=== PATIENT | female | born 1950 | race Two or more races ===

== ENCOUNTER 2024-05-13 10:27 | Emergency (ER) | payer MEDICAID, SELFPAY ==
[2024-05-13 10:36] VITALS: BP 155/93; PULSE 91; PULSE 94; RESP 19; TEMP 37.4; O2SAT 96; O2SAT 97
--- NOTE | 2024-05-13 10:50 | PC.NURSE ---
BIBA FROM HOME FOR COUGH THAT BEGAN ON SATURDAY. NOW CAUSING CP FROM COUGHING TOO MUCH.
--- NOTE | 2024-05-13 11:00 | PD.EDURI ---
Upper Respiratory Inf. RME/HPI General Chief Complaint: Flu Like Symptoms Stated Complaint: COUGH AND CHEST PAIN Arrival date/time: 05/13/24 10:27 RME / HPI RME / HPI Narrative: 74 year old female with history of hypertension, asthma presents to the ED BIBA from home for evaluation of global weakness, body aches, chest pain, and cough. Patient states her symptoms began 3 days ago and this morning felt she was unable to get out of bed due to weakness, prompting ED visit. Daughter at bedside also reports patient has had nausea and decreased po intake. No fevers, shortness of breath, abdominal pain, vomiting, diarrhea, constipation, or urinary symptoms. Related Data Home Medications ?Medication ?Instructions ?Recorded ?Confirmed albuterol sulfate 90 mcg/actuation 2 puff inhalation Q4H PRN sob 08/22/21 09/22/21 aerosol inhaler lisinopril 10 mg tablet 10 mg PO QDAY 08/22/21 09/22/21 omeprazole 40 mg capsule,delayed 40 mg PO QDAY 08/22/21 09/22/21 release cholecalciferol (vitamin D3) 125 125 mcg PO QDAY 09/22/21 09/22/21 mcg (5,000 unit) tablet (Vitamin D3) ciprofloxacin HCl 500 mg tablet 500 mg PO BID 09/22/21 09/22/21 furosemide 20 mg tablet 20 mg PO QDAY 09/22/21 09/22/21 loratadine 10 mg tablet 10 mg PO QDAY 09/22/21 09/22/21 trazodone 50 mg tablet 50 mg PO QDAY 09/22/21 09/22/21 Previous Rx's ?Medication ?Instructions ?Recorded meloxicam 7.5 mg tablet 7.5 mg PO QDAY #14 tabs 01/24/22 pantoprazole 20 mg tablet,delayed 20 mg PO QDAY #20 tabs 01/24/22 release (Protonix) Allergies Allergy/AdvReac Type Severity Reaction Status Date / Time egg Allergy Mild Hives Verified 06/25/23 18:53 Influenza Virus Vaccines Allergy Mild Rash Verified 06/25/23 18:53 Review of Systems Review of Systems Narrative Review of Systems: Constitutional: SEE HPI +global weakness, body aches DENIES; Fevers Eyes: DENIES; Loss of vision Head/Ear/Nose: DENIES; Loss of hearing Throat: DENIES; Dysphagia Cardiovascular: SEE HPI +chest pain. DENIES; dyspnea or syncope Respiratory: SEE HPI +cough. DENIES; Shortness of breath Gastrointestinal: SEE HPI +nausea. DENIES; Rectal bleeding or melena. Genitourinary: DENIES; Dysuria (painful or difficult urination) Musculoskeletal: DENIES; Arthralgia (pain in a joint),; Skin: DENIES; Rash Neurological: SEE HPI +global weakness. DENIES; Loss of function or movement Psychiatric: DENIES; recent major life stressor, emotional problem, illicit drug use or abuse Endocrinology: DENIES; Weight change Hematologic/Lymphatic: DENIES; Abnormal bruising Allergic/Immunologic: DENIES; Urticaria (hives) Past Medical History Past Medical History CARDIAC: Positive Cardiac Disorders, Edema and Hypertension RESPIRATORY: Positive Asthma and Pneumonia GASTROINTESTINAL: Positive Gastrointestinal Disorders, Gall Bladder Disease and Gastroesophageal Reflux Disease GENITOURINARY: Positive Kidney Stones REPRODUCTIVE: Positive Previous Pregnancies MUSCULOSKELETAL: Positive Musculoskeletal Disorders, Arthritis and Osteoporosis ENDOCRINE: Positive Endocrine Disorders HEMATOLOGIC: Positive Anemia PSYCHO/SOCIAL: Positive Depression and Anxiety OTHER HISTORY: Positive Shingles, Falls, Chicken Pox, Measles and Mumps Family History FAMILY HISTORY: Positive Family Cardiac Disorders, Family Surgery and Family Anesthesia Reaction Surgical History SURGICAL: Negative Pacemaker Social History SMOKING STATUS: Never smoker SUBSTANCE USE: does not use ED Exam Narrative Physical exam: Physical Exam: General: The vital signs were reviewed. The patient is non-toxic, in no apparent distress and appears healthy with a patent airway, no respiratory distress and has no apparent circulatory problems. Head & Scalp: Normocephalic, atraumatic. Face: Appears normal and is without lesions, deformity. Ears: Left external pinna appears normal. Right external pinna appears normal. Eyes: The sclera is anicteric. No obvious photophobia. The Left and Right Orbit/Lid/Conjunctiva appears normal without swelling, discoloration or injection. Nose: The nose is without deformity, discharge or tenderness; Throat: Appears normal. The mucous membranes are pink and moist without exudates, redness or mass seen. The tongue appears normal. Neck: The neck is supple and no apparent mass or adenopathy. Chest: The chest wall is normal in size and symmetry and has no chest wall tenderness or crepitus. The patient displays normal ventilator effort without retractions, accessory muscle use and has adequate air movement bilaterally with no wheezes and no rales. Cardiovascular: Regular rate and rhythm; No murmurs, rubs, or gallops; Gastrointestinal: The abdomen appears normal. No obvious hernias or mass. The abdomen is soft and benign, non-distended, with no pain, no guarding and no rebound tenderness. Bowel sounds are present and normal sounding. No CVA tenderness. Genitourinary: Back/Spine: No inspection nontender Extremities/Musculoskeletal/lymphatic: The bilateral upper and lower extremities are warm. There is no evidence of arterial insufficiency. There is no evidence of venous insufficiency/edema. The patient spontaneously moves bilateral upper and lower extremities with no pain and no limitation of movement. There is no apparent, injury or trauma. Skin: The skin is warm, dry and intact. No rashes. No petechia. No purpura. No abnormal bruising. The color is appropriate with no cyanosis. Mental status/Psychiatric: Mental status is appropriate for age. The patient has no apparent delusions, visual hallucinations, no apparent audible hallucinations. The patient has no apparent suicidal thoughts/ideation and no apparent homicidal thoughts/ideation. Neurological: The patient is awake, alert, interactive, cordial, cooperative and is oriented to name and situation. The patient follows commands and answers historical question with no impairment. There is no visual disturbance apparent. The pupils are equal and reactive bilaterally with normal eye movements and no diplopia The bilateral upper and lower extremities have normal strength, normal range of motion and normal functioning. The gait, station and balance not tested due to acuity Course Quality Measures none Orders Category Date Time Status Bedside Blood Glucose NOW Care 05/13/24 15:00 Active EKG (ED ONLY) *Do not use* NOW Care 05/13/24 15:00 Completed Insert IV NOW Care 05/13/24 15:35 Active EKG (ED Only) Stat Exams 05/13/24 15:00 Draft Alcohol, Blood Medical Stat Lab 05/13/24 15:30 Completed Ammonia Stat Lab 05/13/24 15:30 Completed B-Type Natriuretic Peptide Stat Lab 05/13/24 15:30 Completed Blood Culture (Lab) Stat Lab 05/13/24 15:35 Received CBC Stat Lab 05/13/24 15:30 Completed Comprehensive Metabolic Panel Stat Lab 05/13/24 15:30 Completed Lactate (Lactic Acid) Stat Lab 05/13/24 15:30 Completed Procalcitonin Stat Lab 05/13/24 15:30 Completed Troponin I Stat Lab 05/13/24 15:30 Completed Urinalysis Stat Lab 05/13/24 16:23 Completed Urinalysis, C/S if Indicated Stat Lab 05/13/24 16:23 Completed Venous Blood Gas Stat Lab 05/13/24 15:30 Completed Acetaminophen Tab [Tylenol ES Tab] Med 05/13/24 15:34 Discontinued 1,000 mg PO X1 ONE Sodium Chloride 0.9% 1000 ml [Ns] 1,000 ml Med 05/13/24 15:00 Discontinued IV 1,000 mls/hr Sodium Chloride 0.9% 1000 ml [Ns] 2,000 ml Med 05/13/24 15:00 Active IV 150 mls/hr Vital Signs Vital signs: Vital Signs Temperature 99.4 F 05/13/24 10:36 Pulse Rate 94 05/13/24 10:36 Respiratory Rate 19 05/13/24 10:36 Blood Pressure 155/93 H 05/13/24 10:36 Pulse Oximetry (%) 97 05/13/24 10:36 Oxygen Delivery Method Room Air 05/13/24 10:36 Upper Respiratory Infection MDM Narrative MDM Narrative:: Patient is 74-year-old feels weak and tired body aches feverish chest discomfort states there is another family or who is got similar symptoms in the home. Patient had a medical workup which reveals the following venous blood gas 7.37 pCO2 of 52 electrolytes are within normal is BUN/creatinine are 13 and 0.8. Lactic acid is 1.9. Ammonia level was negative troponin was negative BNP was negative with 7 red cells and 6 squames and 1 white cell most likely contaminant alpha level is negative Patient got some fluids she got spiked the Tylenol but overall feels better. She was advised in detail knows return to getting worse in any way take Tylenol fluids and advance as tolerated. She we know there is a delay in the CBC result coming back but it came back negative. At 1810 hrs. Patient data External records reviewed:: [facility] previous records (I reviewed ED visit on 06/25/2023) and EMS form Clinical information provided by:: patient and EMS Social determinants that could affect healthcare access:: none Patient has the following chronic illnesses:: hypertension, asthma How is presenting disease/condition affected by chronic disease/condition?: exacerbated by Evaluation data The following diagnostics were reviewed and interpreted by me:: lab results and EKG tracing(s) (Sinus rhythm, rate 85, no STEMI ) Lab and/or radiology exams considered but not ordered:: None Interpretation Summary: As noted above Medications / Prescriptions Medications or Prescriptions considered but not ordered:: None Medication administrations:: Medication Administration History Sodium Chloride (Ns) 2,000 mls @ 150 mls/hr IV .[id number] ONE Stop: 05/14/24 04:19 Last Admin: 05/13/24 17:34 Dose: 150 mls/hr Documented By: TM Discontinued Medications Acetaminophen (Acetaminophen 500 Mg Tablet) 1,000 mg PO X1 ONE Stop: 05/13/24 15:35 Last Admin: 05/13/24 15:37 Dose: 1,000 mg Documented By: DB Sodium Chloride (Ns) 1,000 mls @ 1,000 mls/hr IV .Q1H ONE Stop: 05/13/24 15:59 Last Infusion: 05/13/24 16:47 Dose: Infused Documented By: Admin: 05/13/24 15:38 Dose: 1,000 mls/hr Documented By: ANTOINETTE See above Consultations Consultation(s) initiated? (list below): No Diagnosis Upper Respiratory Differential Diagnosis: upper respiratory infection, sinusitis, viral infection, bronchitis, influenza and other (RSV) Most likely diagnosis given after review of the tests above:: Weakness Influenza B Admission Indicated Admission indicated?: not indicated Admission Request Was there a request for admission?: No Disposition Plan Disposition Plan: Discharge Discharge Attestation Discharge Attestation: The patient and all family members were given an opportunity to ask questions and understood the discharge instructions. Discharge instructions specifically effects, indications for sooner follow up or return to the emergency department, and the expected course of current diagnosis. Patient condition: Stable Discharge Plan Plan Patient Disposition: HOME (Self Care) Prescriptions/Referrals Prescriptions/Med Rec: No Action trazodone 50 mg Tablet 50 mg PO QDAY ciprofloxacin HCl 500 mg Tablet 500 mg PO BID furosemide 20 mg Tablet 20 mg PO QDAY loratadine 10 mg Tablet 10 mg PO QDAY cholecalciferol (vitamin D3) [Vitamin D3] 125 mcg (5,000 unit) Tablet 125 mcg PO QDAY omeprazole 40 mg capsule,delayed release(DR/EC) 40 mg PO QDAY Patient Comments: TOME LONNIE C PSULA TODOS LOS D lisinopril 10 mg tablet 10 mg PO QDAY Patient Comments: TOME LONNIE TABLETA TODOS LOS D albuterol sulfate 90 mcg/actuation HFA aerosol inhaler 2 puff INHALATION Q4H PRN (Reason: sob) Patient Comments: INHALE DANDO DOS SOPLIDOS INTO THE LUNGS CADA CUATRO HORAS CUANDO SEA NECESARIO FOR 30 DAYS pantoprazole [Protonix] 20 mg tablet,delayed release (DR/EC) 20 mg PO QDAY Qty: 20 0RF meloxicam 7.5 mg tablet 7.5 mg PO QDAY Qty: 14 0RF Referrals: Michael Kim MD [Primary Care Provider] - In 1 week Problem List Clinical Impression: Weakness, Influenza B, Influenza Patient/Caregiver Discharge Instructions Education Materials: ED Influenza (Adult) Additional Instructions: Drink plenty of fluids advance your diet as tolerated. Take Tylenol for aches and pains and fever. Return if getting worse or shortness of breath. Print Language: Sammarinese Stand Alone Forms: Alexia Award Info., Patient Portal Info Letter
[2024-05-13 12:47] VITALS: BP 173/126; PULSE 77; RESP 21; TEMP 37; O2SAT 96
--- NOTE | 2024-05-13 15:00 | EKG_ITS ---
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
[2024-05-13] MEDS: ACETAMINOPHEN 500 MG TABLET 1000 MG PO (15:37)
[2024-05-13] MEDS: SODIUM CHLORIDE 0.9% 1000 ML 1,000 ML IV (15:38)
[2024-05-13 15:46] LABS: Base Excess, Venous 4 (-3-3); O2 Saturation, Venous 46 % (96-97); PCO2, Venous 52 mmHg (36-56); PO2, Venous 27 mmHg (15-58); pH, Venous 7.37 (7.33-7.66)
[2024-05-13 15:47] LABS: Lactate (Lactic Acid) 1.9 mMol/L (0.4-2.0)
[2024-05-13 16:05] LABS: B-Type Natriuretic Peptide 40 pg/mL (0-100)
[2024-05-13 16:12] LABS: Ammonia < 10 uMol/L (11-32)
[2024-05-13 16:13] LABS: Alanine Aminotransferase 28 U/L (10-49); Albumin, Serum 4.1 gm/dL (3.4-4.8); Albumin/Globulin Ratio 1.8 (1.2-2.2); Alcohol, Blood Medical < 10.0 mg/dL (0-10.0); Anion Gap 8 (7-16); Aspartate Amino Transferase 22 U/L (0-34); BUN/Creatinine Ratio 16 Ratio (12-20); Bilirubin,Total 1.1 mg/dL (0.3-1.2); Blood Urea Nitrogen 13 mg/dL (9-23); Calcium 9.2 mg/dL (8.3-10.6); Calcium (Corrected) 9.2 mg/dL (8.5-10.1); Chloride 103 mMol/L (98-107); Creatinine (Component) 0.8 mg/dL (0.6-1.3); Globulin 2.3 gm/dL (2.3-3.5); Glucose 85 mg/dL (74-106); Osmolality,Calculated 278 (275-295); Potassium 3.8 mMol/L (3.4-5.1); Sodium 140 mMol/L (136-145); Total Protein 6.4 gm/dL (5.7-8.2); Troponin I < 0.020 ng/mL (0.0-0.045); eGFR > 60 See Note
--- NOTE | 2024-05-13 16:19 | PC.NURSE ---
PLACED ON BEDPAN AT THIS TIME TO OBTAIN URINE SAMPLE
[2024-05-13 16:24] LABS: Alkaline Phosphatase 115 U/L (46-116); Procalcitonin 0.05 ng/ml (0.0-0.49)
[2024-05-13 16:40] LABS: Collection Type, Urine Catheter
[2024-05-13 16:50] LABS: Bilirubin,Urine Negative (Negative); Blood,Urine Negative (Negative); Clarity,Urine Clear (Clear/Hazy); Color,Urine Lt-Yellow (Lt Yel-Yel); Culture Indicated,Urine Not Indicated; Glucose, Urine Negative (Negative); Ketones,Urine Trace (Negative); Leukocyte Esterase,Urine Negative (Negative); Nitrite,Urine Negative (Negative); Protein,Urine Negative (Neg - Trace); RBC,Urine 7 /hpf (0-3); Specific Gravity,Urine 1.017 (1.001-1.035); Squamous Epithelial Cell,Urine 6 /hpf (0-5); Urobilinogen,Urine Negative mg/dL (0.0-1.0); WBC,Urine 1 /hpf (0-5)
[2024-05-13] MEDS: SODIUM CHLORIDE 0.9% 1000 ML 2,000 ML 150 ML IV (17:34)
[2024-05-13 17:51] LABS: Basophils % (Auto) 0 % (0-2.5); Eosinophils # (Auto) 0.3 Thou/mm3 (0.0-0.5); Eosinophils % (Auto) 4 % (0-10); Hematocrit 42.7 % (36.0-46.0); Hemoglobin 13.9 g/dL (12.0-16.0); Immature Granulocytes % (Auto) 1 % (0-0); Immature Granulocytes Auto 0.04 Thou/mm3 (0.00-0.00); Lymphocytes # (Auto) 1.7 Thou/mm3 (1.0-4.8); Lymphocytes % (Auto) 26 % (10-50); Mean Corpuscular HGB Conc 32.6 g/dl (31.0-37.0); Mean Corpuscular Hemoglobin 29.6 pg (25.0-35.0); Mean Corpuscular Volume 91 fL (80-100); Monocytes # (Auto) 0.7 Thou/mm3 (0.0-0.8); Monocytes % (Auto) 10 % (0-12); Neutrophils % (Auto) 59 % (37-80); Nucleated Red Blood Cell % 0 /100 WBC (0); Platelet Count 176 Thou/mm3 (140-440); RDW Standard Deviation 49.1 fL (36.4-46.3); Red Blood Count 4.69 Miln/mm3 (4.00-5.20); White Blood Count 6.7 Thou/mm3 (3.6-11.0)
[2024-05-13 18:48] VITALS: BP 113/55; PULSE 74; RESP 18; TEMP 525.9; TEMP 978.7; O2SAT 95
--- NOTE | 2024-05-13 19:10 | PC.NURSE ---
Pt not in room.
== END 2024-05-13 20:50 | disposition home or self-care (01) ==
PROVIDERS: Emergency Medicine; Emergency Provider Emergency Medicine; PCP Family Medicine
DX: J10.1 Influenza due to other identified influenza virus with other respiratory manifestations (principal); I10 Essential (primary) hypertension; J45.909 Unspecified asthma, uncomplicated
CPT/HCPCS: 36415; 80053; 80320; 81001; 82140; 82803; 83605; 83880; 84145; 84484; 85025; 87040; 87400; 87811; 93005; 96360; 99284; J7030; A9270; G0480

== ENCOUNTER → 2024-07-21 | Outpatient (CLI) | payer MEDICAID, SELFPAY | END | disposition home or self-care (01) | LOC: SWHD 08:58 | PROVIDERS: PCP Nurse Practitioner Family; Referring Provider Nurse Practitioner Family; Visit Provider Surgery | DX: S81.802A Unspecified open wound, left lower leg, initial encounter (principal); X58.XXXA Exposure to other specified factors, initial encounter; L97.822 Non-pressure chronic ulcer of other part of left lower leg with fat layer exposed; J45.909 Unspecified asthma, uncomplicated; R07.9 Chest pain, unspecified; K21.9 Gastro-esophageal reflux disease without esophagitis; F50.00 Anorexia nervosa, unspecified; R00.2 Palpitations; F41.9 Anxiety disorder, unspecified; R35.89 Other polyuria | CPT/HCPCS: 11042; 99213; A9270; G0463 ==

== ENCOUNTER → 2024-07-23 | Outpatient (CLI) | payer MEDICAID, SELFPAY | END | disposition home or self-care (01) | LOC: SWHD 10:07 | PROVIDERS: PCP Nurse Practitioner Family; Referring Provider Nurse Practitioner Family | DX: S81.802A Unspecified open wound, left lower leg, initial encounter (principal); X58.XXXA Exposure to other specified factors, initial encounter; J45.909 Unspecified asthma, uncomplicated; R07.9 Chest pain, unspecified; K21.9 Gastro-esophageal reflux disease without esophagitis; F50.00 Anorexia nervosa, unspecified; R00.2 Palpitations; F41.9 Anxiety disorder, unspecified; R35.89 Other polyuria; L97.822 Non-pressure chronic ulcer of other part of left lower leg with fat layer exposed | CPT/HCPCS: 29581 ==

== ENCOUNTER → 2024-07-24 | Outpatient (CLI) | payer MEDICAID, SELFPAY ==
[2024-07-24 10:48] LABS: Basophils # (Auto) 0.1 Thou/mm3 (0.0-0.2); Basophils % (Auto) 1 % (0-2.5); Eosinophils # (Auto) 0.4 Thou/mm3 (0.0-0.5); Eosinophils % (Auto) 4 % (0-10); Hematocrit 41.1 % (36.0-46.0); Hemoglobin 13.3 g/dL (12.0-16.0); Immature Granulocytes % (Auto) 1 % (0-0); Immature Granulocytes Auto 0.07 Thou/mm3 (0.00-0.00); Lymphocytes # (Auto) 2.4 Thou/mm3 (1.0-4.8); Lymphocytes % (Auto) 26 % (10-50); Mean Corpuscular HGB Conc 32.4 g/dl (31.0-37.0); Mean Corpuscular Hemoglobin 29.2 pg (25.0-35.0); Mean Corpuscular Volume 90 fL (80-100); Monocytes # (Auto) 0.9 Thou/mm3 (0.0-0.8); Monocytes % (Auto) 10 % (0-12); Neutrophils # (Auto) 5.4 Thou/mm3 (1.8-7.7); Neutrophils % (Auto) 59 % (37-80); Nucleated Red Blood Cell % 0 /100 WBC (0); Platelet Count 397 Thou/mm3 (140-440); RDW Standard Deviation 43.8 fL (36.4-46.3); Red Blood Count 4.55 Miln/mm3 (4.00-5.20); White Blood Count 9.2 Thou/mm3 (3.6-11.0)
[2024-07-24 10:53] LABS: Glucose Estimated Average 117 mg/dL (80-131); Hemoglobin A1C 5.7 % Hgb (4.8-6.0)
[2024-07-24 10:57] LABS: Alanine Aminotransferase 33 U/L (10-49); Albumin, Serum 3.7 gm/dL (3.4-4.8); Albumin/Globulin Ratio 1.5 (1.2-2.2); Alkaline Phosphatase 85 U/L (46-116); Anion Gap 8 (7-16); Aspartate Amino Transferase 37 U/L (0-34); BUN/Creatinine Ratio 10 Ratio (12-20); Bilirubin,Total 0.5 mg/dL (0.3-1.2); Blood Urea Nitrogen 10 mg/dL (9-23); Calcium 9.5 mg/dL (8.3-10.6); Calcium (Corrected) 9.7 mg/dL (8.5-10.1); Carbon Dioxide 26.6 mMol/L (20.0-31.0); Chloride 103 mMol/L (98-107); Globulin 2.4 gm/dL (2.3-3.5); Glucose 110 mg/dL (74-106); Osmolality,Calculated 275 (275-295); Sodium 138 mMol/L (136-145); Total Protein 6.1 gm/dL (5.7-8.2); eGFR 59 See Note
== END | disposition home or self-care (01) ==
LOC: COPL 09:26
PROVIDERS: PCP Physician Assistant; Referring Provider Surgery; Visit Provider Surgery
DX: I87.332 Chronic venous hypertension (idiopathic) with ulcer and inflammation of left lower extremity (principal); R73.03 Prediabetes
CPT/HCPCS: 36415; 80053; 83036; 85025

== ENCOUNTER 2024-07-28 11:27 | Emergency (ER) | payer MEDICAID, SELFPAY ==
[2024-07-28 11:41] VITALS: BP 124/50; PULSE 110; RESP 20; TEMP 37.1; O2SAT 98; BMI 29.2
--- NOTE | 2024-07-28 11:50 | EKG_ITS ---
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
--- NOTE | 2024-07-28 11:50 | XR_ITS ---
Examination: PA lateral chest 2 views TECHNIQUE: Upright PA lateral chest 2 views Date and time: July 28, 2024 1336 hours Comparison February 14, 2019 INDICATIONS: Syncope today. FINDINGS: COPD with significant hyperexpansion Minor atelectasis in the right lower lung zone Normal heart size No pneumonia or pulmonary edema Kyphosis dorsal spine IMPRESSION: COPD with significant hyperexpansion No pneumonia or pulmonary edema
--- NOTE | 2024-07-28 11:51 | PD.EDRME ---
Rapid Medical Screening Exam E Arrival date/time: 07/28/24 11:27 This is a 74-year-old female that comes in with complaints of near syncopal episode. Patient states that she was at the wound center and they are currently looking after wound to her left lower leg. Patient hit herself with a shelf while couple weeks back and is healing well per patient. Patient had a blood pressure checked and it was low at the clinic. Patient states she felt very faint and was told to come to the emergency room. I have greeted and performed a focused initial assessment of this patient. Initial appropriate labs ordered at this time. A comprehensive ED assessment and evaluation of the patient and analysis of all test and completion of medical decision making process will be conducted by additional ED provider. Chief Complaint: Syncope / Near Syncope Time Seen by Provider: 07/28/24 11:35 Vital signs: Vital Signs Temperature 98.7 F 07/28/24 11:41 Pulse Rate 110 H 07/28/24 11:41 Respiratory Rate 20 07/28/24 11:41 Blood Pressure 124/50 L 07/28/24 11:41 Pulse Oximetry (%) 98 07/28/24 11:41 Oxygen Delivery Method Room Air 07/28/24 11:41
[2024-07-28 12:23] LABS: Basophils # (Auto) 0.1 Thou/mm3 (0.0-0.2); Basophils % (Auto) 1 % (0-2.5); Eosinophils # (Auto) 0.3 Thou/mm3 (0.0-0.5); Eosinophils % (Auto) 3 % (0-10); Hematocrit 39.7 % (36.0-46.0); Hemoglobin 13.6 g/dL (12.0-16.0); Immature Granulocytes % (Auto) 1 % (0-0); Lymphocytes % (Auto) 24 % (10-50); Mean Corpuscular HGB Conc 34.3 g/dl (31.0-37.0); Mean Corpuscular Hemoglobin 29.2 pg (25.0-35.0); Mean Corpuscular Volume 85 fL (80-100); Monocytes # (Auto) 1.3 Thou/mm3 (0.0-0.8); Monocytes % (Auto) 11 % (0-12); Neutrophils # (Auto) 7.8 Thou/mm3 (1.8-7.7); Neutrophils % (Auto) 62 % (37-80); Nucleated Red Blood Cell % 0 /100 WBC (0); Platelet Count 449 Thou/mm3 (140-440); RDW Standard Deviation 40.1 fL (36.4-46.3); Red Blood Count 4.66 Miln/mm3 (4.00-5.20); White Blood Count 12.6 Thou/mm3 (3.6-11.0)
[2024-07-28 12:45] LABS: B-Type Natriuretic Peptide < 20 pg/mL (0-100)
[2024-07-28 12:46] LABS: Alanine Aminotransferase 31 U/L (10-49); Albumin, Serum 3.9 gm/dL (3.4-4.8); Albumin/Globulin Ratio 1.6 (1.2-2.2); Alkaline Phosphatase 86 U/L (46-116); Anion Gap 13 (7-16); Aspartate Amino Transferase 42 U/L (0-34); BUN/Creatinine Ratio 7 Ratio (12-20); Bilirubin,Total 0.7 mg/dL (0.3-1.2); Blood Urea Nitrogen 9 mg/dL (9-23); Calcium 9.8 mg/dL (8.3-10.6); Calcium (Corrected) 9.9 mg/dL (8.5-10.1); Carbon Dioxide 24.6 mMol/L (20.0-31.0); Chloride 95 mMol/L (98-107); Creatinine (Component) 1.3 mg/dL (0.6-1.3); Estimated Creatinine Clearance 34.9 mL/min (>60); Globulin 2.4 gm/dL (2.3-3.5); Glucose 123 mg/dL (74-106); Osmolality,Calculated 266 (275-295); Potassium 3.9 mMol/L (3.4-5.1); Sodium 133 mMol/L (136-145); Total Protein 6.3 gm/dL (5.7-8.2); Troponin I < 0.002 ng/mL (0.0-0.045); eGFR 43 See Note
[2024-07-28 15:25] VITALS: BP 102/61; PULSE 99; RESP 18; TEMP 36.7; O2SAT 99
--- NOTE | 2024-07-28 16:27 | EDNOTE_ITS ---
<Statement entered by Simi Christianson MD - 07/29/24 09:00> As co-signing physician, I was present and available for consult prn. I concur with the plan and care as documented by the midlevel provider. ED General RME/HPI General Chief complaint: Syncope / Near Syncope Stated complaint: BP LOW, NAUSEA, NEAR SYNCOPE; LEFT LEG WOUND Time Seen by Provider: 07/28/24 11:35 Arrival date/time: 07/28/24 11:27 CC: Poor healing ulcer to the left lower leg, concern for dehydration secondary to vomiting for the past 2 weeks. Patient is awake alert oriented these were the reports given to myself from daughter of the patient who brings her in after patient was seen at wound care. Patient is awake alert and oriented complaining of nausea. Localized pain to the left lower leg secondary to a wound area with poor healing. RME / HPI RME / HPI narrative: 07/28/24 11:27 This is a 74-year-old female that comes in with complaints of near syncopal episode. Patient states that she was at the wound center and they are currently looking after wound to her left lower leg. Patient hit herself with a shelf while couple weeks back and is healing well per patient. Patient had a blood pressure checked and it was low at the clinic. Patient states she felt very faint and was told to come to the emergency room. I have greeted and performed a focused initial assessment of this patient. Initial appropriate labs ordered at this time. A comprehensive ED assessment and evaluation of the patient and analysis of all test and completion of medical decision making process will be conducted by additional ED provider. Related Data Home Medications ?Medication ?Instructions ?Recorded ?Confirmed albuterol sulfate 90 mcg/actuation 2 puff inhalation Q 4H PRN sob 08/22/21 09/22/21 aerosol inhaler lisinopril 10 mg tablet 10 mg PO QDAY 08/22/2109/22 omeprazole 40 mg capsule,delayed 40 mg PO QDAY 2 09/22/21 release cholecalciferol (vitamin D3) 125 125 mcg PO QDAY 09/2209/22/21 mcg (5,000 unit) tablet (Vitamin D3) ciprofloxacin HCl 500 mg tablet 500 mg PO BID 09/22/21 09/22/21 furosemide 20 mg tablet 20 mg PO QDAY 09/22/2109/22 loratadine 10 mg tablet 10 mg PO QDAY 09/22/2109/22 trazodone 50 mg tablet 50 mg PO QDAY 09/22/2109/22 Previous Rx's ?Medication ?Instructions ?Recorded meloxicam 7.5 mg tablet 7.5 mg PO QDAY #14 tabs 11/0 12/07 pantoprazole 20 mg tablet,delayed 20 mg PO QDAY #20 ta bs 01/24/22 release (Protonix) cephalexin 500 mg capsule 500 mg PO TID #21 caps 07/28 ondansetron 4 mg disintegrating 4 mg PO Q8H #10 tabs 0 07/28/24 tablet Allergies Allergy/AdvReac Type Severity Reaction Status Date / Time egg Allergy Mild Hives Verified 06/25/23 18:53 Review of Systems Review of Systems Narrative Review of Systems: GEN: No fever, no chills, no weight loss EYES: No discharge, no visual changes, no pain HEENT: No ear pain, no congestion, no sore throat PULM: No shortness of breath, no cough, no congestion CV: No chest pain, no dyspnea on exertion, no palpitations GI: + nausea, + vomiting, no diarrhea, no pain, no constipation : No frequency, no urgency, no dysuria MUSC/SKEL: No joint pain, no back pain SKIN: No rash PSYCH: No hallucinations, no depression HEME/LYMPH: No easy bleeding or bruising tendencies NEURO: No weakness, no headache Past Medical History Past Medical History NEUROLOGIC: Negative Neurological Disorders, Dementia, Seizures or Head Trauma CARDIAC: Positive Cardiac Disorders, Edema and Hypertension; Negative Congestive Heart Failure, Cellulitis or Varicose Veins RESPIRATORY: Positive Asthma and Pneumonia; Negative Chronic Obstructive Pulmonary Disease (COPD), Tuberculosis or Sleep A pnea GASTROINTESTINAL: Positive Gastrointestinal Disorders, Gall Bladder Disease, Hemorrhoids and Gastroesophageal Reflux Disease; Negative Hepatitis GENITOURINARY: Positive Kidney Stones; Negative Genitourinary Disorders or Renal Disease REPRODUCTIVE: Positive Previous Pregnancies MUSCULOSKELETAL: Positive Musculoskeletal Disorders, Arthritis and Osteoporosis ENT: Negative Head Trauma ENDOCRINE: Positive Endocrine Disorders; Negative Diabetes Mellitus Type 1 or Diabetes Mellitus Type 2 HEMATOLOGIC: Positive Anemia; Negative Blood Disorders or Sickle Cell Disease PSYCHO/SOCIAL: Positive Depression and Anxiety OTHER HISTORY: Positive Hospitalization, Shingles, Falls, Chicken Pox, Measles and Mumps; Negative Autoimmune Disease, Down Syndrome, Developmental Delay, Blood Transfusions, Blood Transfusion Reaction, Anesthesia Reactions, Chemotherapy, Radiation Therapy, MRSA or Cancer Family History FAMILY HISTORY: Positive Family Cardiac Disorders, Family Surgery and Family Anesthesia Reaction; Negative Family Psychiatric Problems, Family Respiratory Disorders, Family Gastrointestinal Problems or Family Cancer Surgical History SURGICAL: Negative Pacemaker Social History SMOKING STATUS: Never smoker SUBSTANCE USE: does not use ED Exam Narrative Physical exam: [General: Appears not in any acute distress Head normocephalic HEENT: Eyes: Pupils are PERRLA EOMs are intact mouth pink dry membranes uvula is midline swallow symmetrical phonation is normal. All other subsystems of HEENT are within acceptable limits Neck is supple nontender Chest equal chest rise nontender to palpation Respiratory: Clear to auscultation no wheezes crackles or rubs CV: Rate rhythm is regular no murmurs rubs or clicks Abdomen is distended secondary to body habitus soft nontender no masses positive bowel sounds all 4 quadrants Back: No CVA tenderness no spinous process tenderness from cervical spine thoracic and lumbar spine Skin: 3 cm open wraps around ulceration, no surrounding erythema or edema. Granulation tissue is present no eschar. Otherwise skin is intact no petechiae rash induration ulceration or crepitus Extremities: Moving all extremity against resistance cap refill less than 2 seconds neurosensory intact. No lower extremity edema. Neuro: Awake alert oriented x3 Glascow coma 15 no focal deficits] Course Quality Measures none Orders Category Date Time Status EKG (ED ONLY) *Do not use* NOW Care 07/28/24 11:50 Completed Saline [Insert IV] NOW Care 07/28/24 16:26 Completed EKG (ED Only) Stat Exams 07/28/24 11:50 Draft XR chest 2V Stat Exams 07/28/24 11:50 Completed BNP [B-Type Natriuretic Peptide] Stat Lab 07/28/24 12:01 Completed CBC Stat Lab 07/28/24 12:01 Completed Comprehensive Metabolic Panel Stat Lab 07/28/24 12:01 Completed Troponin I Stat Lab 07/28/24 12:01 Completed Ondansetron Odt [Zofran Odt] Med 07/28/24 16:26 Discontinued 4 mg PO X1 ONE Sodium Chloride 0.9% 500 ml [Ns] 500 ml Med 07/28/24 16:27 Discontinued IV 999 mls/hr cefTRIAXone/D5w 1gm IV premix [Rocephin/D5w 1gm IV Med 07/28/24 16:26 Discontinued premix] 1 gm in 50 ml IV X1 Vital Signs Vital signs: Vital Signs Temperature 98.7 F 07/28/24 11:41 Pulse Rate 110 H 07/28/24 11:41 Respiratory Rate 20 07/28/24 11:41 Blood Pressure 124/50 L 07/28/24 11:41 Pulse Oximetry (%) 98 07/28/24 11:41 Oxygen Delivery Method Room Air 07/28/24 11:41 Discharge Plan Plan Patient Disposition: HOME (Self Care) Patient condition on transfer: Stable Prescriptions/Referrals Prescriptions/Med Rec: New cephalexin 500 mg capsule 500 mg PO TID Qty: 21 0RF ondansetron 4 mg tablet,disintegrating 4 mg PO Q8H Qty: 10 0RF No Action trazodone 50 mg Tablet 50 mg PO QDAY ciprofloxacin HCl 500 mg Tablet 500 mg PO BID furosemide 20 mg Tablet 20 mg PO QDAY loratadine 10 mg Tablet 10 mg PO QDAY cholecalciferol (vitamin D3) [Vitamin D3] 125 mcg (5,000 unit) Tablet 125 mcg PO QDAY omeprazole 40 mg capsule,delayed release(DR/EC) 40 mg PO QDAY Patient Comments: TOME LONNIE C PSULA TODOS LOS D lisinopril 10 mg tablet 10 mg PO QDAY Patient Comments: TOME LONNIE TABLETA TODOS LOS D albuterol sulfate 90 mcg/actuation HFA aerosol inhaler 2 puff INHALATION Q4H PRN (Reason: sob) Patient Comments: INHALE DANDO DOS SOPLIDOS INTO THE LUNGS CADA CUATRO HORAS CUANDO SEA NECESARIO FOR 30 DAYS pantoprazole [Protonix] 20 mg tablet,delayed release (DR/EC) 20 mg PO QDAY Qty: 20 0RF meloxicam 7.5 mg tablet 7.5 mg PO QDAY Qty: 14 0RF Referrals: Rommel Rodriguez PA-C [Primary Care Provider] - In 1 week Problem List Clinical Impression: Nausea, Leg ulcer Patient/Caregiver Discharge Instructions Education Materials: Wound Care, Nausea Vomit Control-Cancer Care Print Language: Macedonian Stand Alone Forms: Alexia Award Info., Work/School Release, Patient Portal Info Letter PA/WILDLIFE REHABILITATOR Supervising Physician PA/WILDLIFE REHABILITATOR Supervising Physician: Hiram Gomez ENP [facility] Clinical Information Provided by: patient and family Medical Records reviewed [facility] Meds/Rx considered, not ordered None Labs/Rad/Tests considered, not ordered None Chronic Illness/Social Conditions which may negatively complicate care or outcome(s)-explain: None or not applicable EKG EKG not done EKG Interpretation EKG #1: EKG Interpretation: EKG performed at 1154 shows ventricular rate of 113 QRS of 74 QTc of 386 is sinus tachycardia. Labs Labs: Interpreted by id Lab(s) Interpretation(s): CBC shows mild leukocytosis of 12.7 no anemia thrombocytopenia CMP shows sodium 133 chloride of 95 glucose of 123 all electrolytes within acceptable limits no renal impairment no transaminitis or T. bili elevation Troponin and BNP are negative Medication Administration(s) Medication Administration History Discontinued Medications Ceftriaxone Sodium/Dextrose (Rocephin/D5w 1gm Iv Premix) 1 gm in 50 mls @ 100 mls/hr IV X1 ONE Stop: 07/28/24 16:55 Last Admin: 07/28/24 16:58 Dose: 100 mls/hr Documented By: DC Sodium Chloride (Ns) 500 mls @ 999 mls/hr IV .Q31M ONE Stop: 07/28/24 16:57 Last Admin: 07/28/24 16:58 Dose: 999 mls/hr Documented By: DC Ondansetron HCl (Ondansetron Odt 4 Mg Tabrap) 4 mg PO X1 ONE; Protocol Stop: 07/28/24 16:27 Last Admin: 07/28/24 16:58 Dose: 4 mg Documented By: DC
[2024-07-28] MEDS: SODIUM CHLORIDE 0.9% 500 ML 500 ML 999 ML IV (16:58)
[2024-07-28] MEDS: ONDANSETRON ODT 4 MG TABRAP PO (16:58)
[2024-07-28] MEDS: cefTRIAXone/D5w 1gm IV premix 1 GM/50 ML BAG IV (16:58)
[2024-07-28 17:00] VITALS: BP 111/71; PULSE 82; RESP 18; TEMP 36.7; O2SAT 94
[2024-07-28 18:11] VITALS: BP 111/71; PULSE 98; RESP 18; TEMP 36.7
== END 2024-07-28 18:11 | disposition home or self-care (01) ==
PROVIDERS: Nurse Practitioner Family; Emergency Provider Emergency Medicine; PCP Physician Assistant
DX: R11.0 Nausea (principal); L97.929 Non-pressure chronic ulcer of unspecified part of left lower leg with unspecified severity; R55 Syncope and collapse; R00.0 Tachycardia, unspecified
CPT/HCPCS: 36415; 71046; 80053; 81001; 83880; 84484; 85025; 93005; 99284; J0696; J7040; Q0162

== ENCOUNTER → 2024-07-28 | Outpatient (CLI) | payer MEDICAID, SELFPAY | END | disposition home or self-care (01) | LOC: SWHD 10:20 | PROVIDERS: PCP Nurse Practitioner Family; Referring Provider Nurse Practitioner Family; Visit Provider Student in an Organized Health Care Education/Training Program | DX: S81.802A Unspecified open wound, left lower leg, initial encounter (principal); X58.XXXA Exposure to other specified factors, initial encounter; J45.909 Unspecified asthma, uncomplicated; R07.9 Chest pain, unspecified; K21.9 Gastro-esophageal reflux disease without esophagitis; F50.00 Anorexia nervosa, unspecified; R00.2 Palpitations; F41.9 Anxiety disorder, unspecified; R35.89 Other polyuria; L97.822 Non-pressure chronic ulcer of other part of left lower leg with fat layer exposed | CPT/HCPCS: 11042; A9270 ==

== ENCOUNTER → 2024-08-04 | Outpatient (CLI) | payer MEDICAID, SELFPAY | END | disposition home or self-care (01) | LOC: SWHD 10:14 | PROVIDERS: PCP Physician Assistant; Referring Provider Physician Assistant; Visit Provider Student in an Organized Health Care Education/Training Program | DX: S81.802A Unspecified open wound, left lower leg, initial encounter (principal); W22.8XXA Striking against or struck by other objects, initial encounter; J45.909 Unspecified asthma, uncomplicated; D69.6 Thrombocytopenia, unspecified; M06.80 Other specified rheumatoid arthritis, unspecified site; I10 Essential (primary) hypertension; Z99.3 Dependence on wheelchair; K21.9 Gastro-esophageal reflux disease without esophagitis; R35.89 Other polyuria; F41.9 Anxiety disorder, unspecified | CPT/HCPCS: 17250; A9270 ==

== ENCOUNTER → 2024-11-03 | Outpatient (CLI) | payer MEDICAID, SELFPAY ==
--- NOTE | 2024-11-03 12:40 | XR_ITS ---
Examination: Bone densitometry Date and time of exam:November 03, 2024 1354 hours INDICATIONS: Menopause age 49 Technique: Lumbar spine and hip total bone mineralization values of an calculated. Peak reference and age match control results have been displayed. Findings: Lumbar spine total bone mineralization is0.705 gm/cm2. This is 3.1 standard deviations below peak reference. This is 0.7 standard deviations below age-matched controls. Hip total bone mineralization is 0.642 gm/cm2 This is 2.4 standard deviations below peak reference. This is 0.5 standard deviations below age-matched controls Impression: There is osteoporosis based on lumbar spine measurements. There is osteoporosis based on hip measurements Lumbar mineralization is decreased 4.1% compared with May 07, 2017 Hip mineralization is decreased 12.3% compared with May 07, 2017
== END | disposition home or self-care (01) ==
LOC: CDIM 13:11
PROVIDERS: Referring Provider Nurse Practitioner Family; Visit Provider Nurse Practitioner Family
DX: M81.0 Age-related osteoporosis without current pathological fracture (principal)
CPT/HCPCS: 77080

== ENCOUNTER → 2024-12-19 | Outpatient (CLI) | payer MEDICAID, SELFPAY ==
--- NOTE | 2024-12-19 12:30 | XR_ITS ---
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 No free fluid in the pelvis. 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
== END | disposition home or self-care (01) ==
LOC: SMRI 12:10
PROVIDERS: PCP Internal Medicine; Referring Provider Internal Medicine; Visit Provider Internal Medicine
DX: D16.8 Benign neoplasm of pelvic bones, sacrum and coccyx (principal)
CPT/HCPCS: 72195

== ENCOUNTER → 2024-12-31 | Outpatient (CLI) | payer MEDICAID, SELFPAY ==
--- NOTE | 2024-12-31 10:30 | XR_ITS ---
Examination: Screening digital mammography, bilateral Computer aided detection 3-D breast Tomosynthesis, bilateral Date and time of exam: 12/31/2024, 10:45 a.m. Comparisons: February 2011 through July 2015 Indications: Screening Technique: Nonmagnified MLO, CC views of the breasts to been obtained, reconstructed from 3-D Tomosynthesis images. R2 computer aided detection program utilized for evaluation of suspicious masses and/or abnormal calcifications. 3-D Tomosynthesis images obtained. Technologist: Findings: There are scattered areas of fibroglandular density. No evidence of abnormal masses or suspicious calcifications. Impression: BI-RADS category 1: Negative findings (within normal) Recommend 1 year follow-up mammogram
== END | disposition home or self-care (01) ==
LOC: CDIM 10:24
PROVIDERS: Referring Provider Nurse Practitioner Family; Visit Provider Nurse Practitioner Family
DX: Z12.31 Encounter for screening mammogram for malignant neoplasm of breast (principal); R92.313 Mammographic fatty tissue density, bilateral breasts
CPT/HCPCS: 77063; 77067